=== PATIENT | female | born 1935 | race Caucasian/White ===

== ENCOUNTER 2018-02-11 16:28 | Emergency (ER) | payer SELFPAY | END 2018-02-11 16:48 | disposition left against medical advice (07) | LOC: E/R 16:28 | DX: Z53.21 Procedure and treatment not carried out due to patient leaving prior to being seen by health care provider (principal) | CPT/HCPCS: 82962 ==

== ENCOUNTER 2018-08-23 20:32 | Inpatient (IN) | payer MEDICAID ==
[2018-08-23] MEDS: IPRATROPIUM (NEB) 0.5 MG/2.5 ML AMP NEB (22:15)
[2018-08-23] MEDS: ALBUTEROL 0.083% (NEB) 2.5 MG/3 ML AMP NEB (22:15)
[2018-08-23] MEDS: DEXAMETHASONE 10 MG/ML 1 ML INJ IV (22:24)
[2018-08-23 22:28] LABS: ADD MAN DIFF? NO
[2018-08-23 22:29] LABS: BASOPHILS % 0.3 % (0.0-2.0); EOSINOPHILS # 0.2 10^3/ul (0.0-0.5); EOSINOPHILS % 3.1 % (0.0-7.0); HEMATOCRIT 37.1 % (37.0-47.0); HEMOGLOBIN 12.3 g/dl (12.0-16.0); LYMPHOCYTES # 1.5 10^3/ul (0.8-2.9); LYMPHOCYTES % 25.1 % (15.0-51.0); MEAN CORPUSCULAR HEMOGLOBIN 31.3 pg (29.0-33.0); MEAN CORPUSCULAR HGB CONC 33.2 g/dl (32.0-37.0); MEAN CORPUSCULAR VOLUME 94.4 fl (82.0-101.0); MEAN PLATELET VOLUME 9.6 fl (7.4-10.4); MONOCYTE # 0.4 10^3/ul (0.3-0.9); MONOCYTES % 7.5 % (0.0-11.0); NEUTROPHIL # 3.8 10^3/ul (1.6-7.5); NEUTROPHILS % 63.8 % (39.0-77.0); PLATELET COUNT 202 10^3/UL (140-415); RED BLOOD COUNT 3.93 10^6/ul (4.20-5.40); RED CELL DISTRIBUTION WIDTH 11.7 % (11.5-14.5)
[2018-08-23 22:29] LABS: WHITE BLOOD COUNT 5.9 10^3/ul (4.8-10.8)
[2018-08-23 22:50] LABS: BLOOD UREA NITROGEN 55 mg/dl (7-20); CALCIUM 9.6 mg/dl (8.4-10.2); CARBON DIOXIDE 25 mmol/L (21-31); CREATININE 2.05 mg/dl (0.44-1.00); GLUCOSE 116 mg/dl (70-220); POTASSIUM 4.7 mmol/L (3.5-5.1); SODIUM 141 mmol/L (135-144)
[2018-08-23 23:02] LABS: B-TYPE NATRIURETIC PEPTIDE 451 PG/ML (0-450); TROPONIN-I < 0.012 ng/ml (0.000-0.120)
[2018-08-23 23:10] LABS: ANION GAP 8 (5-13); CHLORIDE 108 mmol/L (97-110)
[2018-08-24] MEDS: AZITHROMYCIN 500MG/NS (PMX) 250 ML IV (00:46)
[2018-08-24] MEDS: CEFTRIAXONE 1 GM/50 ML (PMX) 50 ML IVPB ×2 (00:46→22:44)
[2018-08-24] MEDS ORDERED: ACETAMINOPHEN 325 MG TAB PO (01:00)
[2018-08-24] MEDS ORDERED: ONDANSETRON 4 MG INJ IV (01:00)
[2018-08-24] MEDS ORDERED: NON-FORMULARY/PATIENT OWN MED (Albuterol/Ipratropium* (Combivent Respimat*) 1 PUFF) IH (01:30)
[2018-08-24] MEDS ORDERED: DEXTROSE 50% 50 ML SYRINGE IV ×2 (01:30)
[2018-08-24] MEDS ORDERED: GLUCAGON 1 MG INJ IM (01:30)
[2018-08-24] MEDS ORDERED: GLUCOSE GEL 15 GRAM TUBE PO ×2 (01:30)
[2018-08-24] MEDS ORDERED: GLUCOSE GEL 15 GRAM TUBE BUCCAL (01:30)
[2018-08-24] MEDS ORDERED: traMADol 50 MG TAB PO (01:30)
[2018-08-24] MEDS: ACCU-CHEK XX (02:00)
[2018-08-24] MEDS: predniSONE 20 MG TAB PO (08:33)
[2018-08-24] MEDS: AMLODIPINE 5 MG TAB PO (08:34)
[2018-08-24] MEDS: ASPIRIN 81 MG TAB PO (08:34)
[2018-08-24] MEDS: INSULIN ASPART [NOVOLOG] 3 ML PEN SC ×5 (08:36→21:12)
[2018-08-24] MEDS: INSULIN ASP PROT/ASPART (70/30) PEN SC ×2 (08:37→21:06)
[2018-08-24] MEDS: ALBUTEROL/IPRATROPIUM (NEB) 3 ML AMP HHN ×4 (11:17→20:45)
[2018-08-24] MEDS: FAMOTIDINE 20 MG TAB PO (17:09)
[2018-08-24] MEDS ORDERED: HEPARIN 5,000 UNIT/0.5 ML VIAL (22:33)
[2018-08-24] MEDS: HEPARIN 5,000 UNIT/1 ML VIAL SC (22:47)
[2018-08-25] MEDS: AZITHROMYCIN 500MG/NS (PMX) 250 ML IVPB (00:22)
[2018-08-25] MEDS: INSULIN ASPART [NOVOLOG] 3 ML PEN SC ×3 (00:48→12:39)
[2018-08-25] MEDS: ACCU-CHEK XX (02:00)
[2018-08-25] MEDS ORDERED: HEPARIN 5,000 UNIT/0.5 ML VIAL ×2 (05:20→14:15)
[2018-08-25] MEDS: HEPARIN 5,000 UNIT/1 ML VIAL SC ×2 (05:22→15:14)
[2018-08-25 06:14] LABS: ADD MAN DIFF? NO
[2018-08-25 06:21] LABS: WHITE BLOOD COUNT 8.2 10^3/ul (4.8-10.8)
[2018-08-25 06:21] LABS: BASOPHILS % 0.1 % (0.0-2.0); HEMATOCRIT 34.5 % (37.0-47.0); HEMOGLOBIN 11.3 g/dl (12.0-16.0); LYMPHOCYTES # 1.1 10^3/ul (0.8-2.9); LYMPHOCYTES % 13.6 % (15.0-51.0); MEAN CORPUSCULAR HGB CONC 32.8 g/dl (32.0-37.0); MEAN CORPUSCULAR VOLUME 94.5 fl (82.0-101.0); MEAN PLATELET VOLUME 10.2 fl (7.4-10.4); MONOCYTE # 0.7 10^3/ul (0.3-0.9); MONOCYTES % 8.3 % (0.0-11.0); NEUTROPHIL # 6.4 10^3/ul (1.6-7.5); NEUTROPHILS % 77.6 % (39.0-77.0); PLATELET COUNT 206 10^3/UL (140-415); RED BLOOD COUNT 3.65 10^6/ul (4.20-5.40); RED CELL DISTRIBUTION WIDTH 11.9 % (11.5-14.5)
[2018-08-25 06:39] LABS: INR 1.01; PROTIME 13.4 Sec (11.9-14.9)
[2018-08-25 06:40] LABS: PARTIAL THROMBOPLASTIN TIME 25.2 Sec (23.0-35.0)
[2018-08-25 07:07] LABS: PHOSPHORUS 3.6 mg/dl (2.5-4.9)
[2018-08-25 07:07] LABS: CHOL/HDL RATIO 3.8 RATIO; CHOLESTEROL 161 mg/dl (100-200); HDL CHOLESTEROL 42 mg/dl (33-92); LDL CHOLESTEROL,CALCULATED 93 mg/dl; MAGNESIUM 2.3 mg/dl (1.7-2.5); TRIGLYCERIDES 129 mg/dl (0-149)
[2018-08-25 07:10] LABS: ALANINE AMINOTRANSFERASE 17 IU/L (13-69); ALBUMIN 3.6 g/dl (3.3-4.9); ALBUMIN/GLOBULIN RATIO 1.12; ALKALINE PHOSPHATASE 96 IU/L (42-121); ANION GAP 11 (5-13); ASPARTATE AMINO TRANSFERASE 17 IU/L (15-46); BILIRUBIN,INDIRECT 0.1 mg/dl (0-1.1); BILIRUBIN,TOTAL 0.1 mg/dl (0.2-1.3); BLOOD UREA NITROGEN 58 mg/dl (7-20); CARBON DIOXIDE 20 mmol/L (21-31); CHLORIDE 112 mmol/L (97-110); CREATININE 1.63 mg/dl (0.44-1.00); GLUCOSE 221 mg/dl (70-220); POTASSIUM 4.8 mmol/L (3.5-5.1); SODIUM 143 mmol/L (135-144); TOTAL PROTEIN 6.8 g/dl (6.1-8.1)
[2018-08-25 08:15] LABS: THYROID STIMULATING HORMONE 0.683 MIU/L (0.465-4.680)
[2018-08-25 08:31] LABS: HEMOGLOBIN A1C 6.1 % (0-5.9)
[2018-08-25] MEDS: AMLODIPINE 5 MG TAB PO (08:31)
[2018-08-25] MEDS: INSULIN ASP PROT/ASPART (70/30) PEN SC (08:31)
[2018-08-25] MEDS: predniSONE 20 MG TAB PO (08:32)
[2018-08-25] MEDS: ASPIRIN 81 MG TAB PO (08:32)
[2018-08-25] MEDS: FAMOTIDINE 20 MG TAB PO (08:32)
[2018-08-25] MEDS: ALBUTEROL/IPRATROPIUM (NEB) 3 ML AMP HHN ×2 (08:51→13:00)
== END 2018-08-25 15:49 | disposition home or self-care (01) | DRG 202 ==
LOC: PP2 08-24 01:00 → E/R 20:32
DX: J45.901 Unspecified asthma with (acute) exacerbation (principal); J18.9 Pneumonia, unspecified organism; N17.9 Acute kidney failure, unspecified; E11.22 Type 2 diabetes mellitus with diabetic chronic kidney disease; I12.9 Hypertensive chronic kidney disease with stage 1 through stage 4 chronic kidney disease, or unspecified chronic kidney disease; N18.9 Chronic kidney disease, unspecified; E78.5 Hyperlipidemia, unspecified; Y95 Nosocomial condition; E66.9 Obesity, unspecified; Z68.33 Body mass index [BMI] 33.0-33.9, adult; Z79.4 Long term (current) use of insulin; Z87.891 Personal history of nicotine dependence
CPT/HCPCS: 71045; 80048; 80053; 80061; 82962; 83036; 83735; 83880; 84100; 84439; 84443; 84484; 85025; 85610; 85730; 87040; 87400; 93005; 93306; 94640; 94664; 96374; 96375; 99285-25

== ENCOUNTER 2019-03-13 18:05 | Emergency (ER) | payer MEDICAID ==
[2019-03-13] MEDS: ACETAMINOPHEN 500 MG TAB PO (18:48)
[2019-03-13] MEDS: DIPHTH/TET/ACEL PERTUSS (ADULT) 0.5 ML VIAL IM* (18:49)
[2019-03-13] MEDS: LIDOCAINE 1% (MDV) 10 ML INJ INJ (18:50)
== END 2019-03-13 19:45 | disposition home or self-care (01) ==
LOC: FTE 18:05
DX: S51.812A Laceration without foreign body of left forearm, initial encounter (principal); J45.909 Unspecified asthma, uncomplicated; I10 Essential (primary) hypertension; W25.XXXA Contact with sharp glass, initial encounter; Y92.9 Unspecified place or not applicable; Z23 Encounter for immunization; Z79.4 Long term (current) use of insulin; Z79.82 Long term (current) use of aspirin
CPT/HCPCS: 12002; 73110-LT; 90471; 90715; 99283-25